=== PATIENT | male | born 1940 | race American Indian/Alaskan Native ===

== ENCOUNTER 2017-09-01 13:18 | Emergency (ER) | payer SELFPAY ==
[2017-09-01 13:33] VITALS: BP 165/70
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
== END 2017-09-01 16:06 | disposition home or self-care (01) ==
LOC: ED 13:18
DX: R07.81 Pleurodynia (principal); M25.522 Pain in left elbow; I10 Essential (primary) hypertension
CPT/HCPCS: 99282